=== PATIENT | female | born 1960 | race Caucasian/White ===

== ENCOUNTER 2022-02-27 16:11 | Emergency (ER) | payer OTHER, SELFPAY ==
--- NOTE | ~2022-02-27 | CT_ITS ---
EXAMINATION: CT cervical spine wo con DATE: 02/27/2022 17:23 INDICATION: fall TECHNIQUE: Computed tomography (CT) of the cervical spine was performed without intravenous contrast. Automated exposure control and iterative reconstruction technique were employed. The dose-length pro duct was 213.80 mGy-cm. COMPARISON: None FINDINGS: Counting reference: Craniocervical junction. There are seven cervical type vertebral bodies. Anatomic Variants: None. Vertebral Body Alignment: Intact. Craniocervical junction: Moderate degenerative change. Alignment intact. Osseous structures/fracture: No evidence of a lytic or blastic process in the visualized spine. N o evidence of acute fracture. Cervical soft tissues: The paraspinal soft tissues planes are maintained. Biapical pleural scarrin g and pleural blebs. Degenerative changes: Multilevel degenerative disc disease, severe at C4-5. The level mild facet arth ropathy. Multilevel severe bilateral neural foraminal narrowing and severe central canal narrowing at C4-5. IMPRESSION: No acute fracture or traumatic malalignment in the cervical spine. Reviewed, dictated and finalized at location K.
--- NOTE | ~2022-02-27 | XR_ITS ---
Z EXAM: XR foot LT min 3V DATE: 02/27/2022 16:35 HISTORY: fall - foot swelling, pain thoughout . COMPARISON: None available. FINDINGS: Normal mineralization. No fracture or dislocation. No lytic or blastic lesion. Os navicula ris. Degenerative change in the midfoot joints. Achilles and plantar enthesopathy. No erosion or neisha osteal change. Soft tissues within normal limits. IMPRESSION: No acute osseous finding in the left foot. Reviewed, dictated and finalized at location K.
--- NOTE | ~2022-02-27 | CT_ITS ---
EXAMINATION: CT brain wo con DATE: 02/27/2022 17:23 INDICATION: fall . TECHNIQUE: Computed tomography (CT) of the head was performed without intravenous contrast. The mA wa s adjusted according to patient size. Iterative reconstruction technique was employed. The dose-lengt h product was 605.33 mGy-cm. COMPARISON: 09/13/2007. FINDINGS: No acute intracranial hemorrhage or extra-axial fluid collection. No hydrocephalus, mass, or herniation. No acute ischemic infarct. Unremarkable dural venous sinus attenuation. No acute osseous abnormality. The aerated spaces are clear. Severe chronic white matter change. Moderate atrophy. Multiple old bilateral lacunar infarcts. Old bi lateral occipital and left posterior frontal infarcts. Atherosclerotic intracranial calcifications. IMPRESSION: No acute intracranial process. Reviewed, dictated and finalized at location K.
[2022-02-27 16:27] VITALS: BP 154/86; PULSE 125; RESP 22; TEMP 36.7; O2SAT 98
--- NOTE | 2022-02-27 16:36 | ECG_ITS ---
Measurements Intervals [place] Rate: 112 P: 56 MN: 202 QRS: -9 QRSD: 144 T: 87 QT: 382 QTc: 522 Interpretive Statements SINUS TACHYCARDIA WITH OCCASIONAL VENTRICULAR PREMATURE COMPLEXES WITH OCCASIONAL SUPRAVENTRICULAR PREMATURE COMPLEXES POSSIBLE LEFT ATRIAL ENLARGEMENT [-0.1mV P WAVE IN V1/V2] LEFT BUNDLE BRANCH BLOCK [120+ ms QRS DURATION, 80+ ms Q/S IN V1/V2, 85+ ms R IN I/aVL/V5/V6] NO PREVIOUS ECG AVAILABLE FOR COMPARISON Electronically Signed On 02-27-2022 22:19:25 CDT by Elena Varela M.D.
--- NOTE | 2022-02-27 17:10 | PC.NURSE ---
Pt to CT scan a this time.
--- NOTE | 2022-02-27 17:11 | PC.NURSE ---
Per pt - requesting pain medication. Discussed this and allergies w/ Dr Stinson, gave VORB for Tylenol 650 PO.
[2022-02-27] MEDS: ACETAMINOPHEN 325 MG TABLET 650 MG PO (17:27)
[2022-02-27 17:31] VITALS: BP 138/84; PULSE 85; RESP 19; O2SAT 93
--- NOTE | 2022-02-27 18:04 | ED.FALL ---
HPI - Fall General Chief Complaint: Fall Stated Complaint: fall, left foot pain Time Seen by Provider: 02/27/22 16:31 Source: patient and family Mode of arrival: wheelchair Limitations: no limitations History of Present Illness HPI Narrative: 61-year-old was brought in by family with complaints of fall at home. As per the family nobody has witnessed seen her fall but now complains of, neck and left foot pain. She denies loss of consciousness. MD complaint: fall Onset (ago): hour(s) (2) Fall from: down stairs (#) (4) Fall witnessed: no Place fall occurred: home Loss of consciousness: none Symptoms prior to fall: none Context: tripped/slipped Location of injury: neck, back and other (Left foot) Related Data Allergies Allergy/AdvReac Type Severity Reaction Status Date / Time aspirin Allergy Intermediate Swelling, Verified 02/27/22 16:48 itching, Shortness of breath adhesive tape Allergy Mild ITCHING, Verified 02/27/22 16:48 RED codeine Allergy Unknown Swelling, Verified 02/27/22 16:48 itching, Shortness of breath tramadol Allergy Unknown Itching, Verified 02/27/22 16:48 Swelling, Shortness of breath ANYTHING WITH ZINE Allergy Unknown Rash, Uncoded 02/27/22 16:48 swelling, numbness on face Review of Systems Review of Systems: All systems reviewed & are unremarkable except as noted in HPI and below Constitutional: Constitutional: Reports no additional constitutional complaints Eyes: Eyes: Reports no additional eye complaints ENT: Reports system reviewed and no additional complaints, except as documented Cardiovascular: Cardiovascular: Reports no additional cardiovascular complaints Respiratory: Respiratory: Reports no additional respiratory complaints Gastrointestinal: Gastrointestinal: Reports no additional gastrointestinal complaints Musculoskeletal: Musculoskeletal: Reports as per HPI Neurologic: Reports system reviewed and no additional complaints, except as documented Exam Narrative: GENERAL: Well-appearing, well-nourished, and in no acute distress. HEAD: Normocephalic, atraumatic. EYES: PERRLA and EOMI. NECK: Supple. CHEST: Clear to auscultation. No respiratory distress. HEART: Regular rate and rhythm. No murmur heard. Normal peripheral pulses. ABDOMEN: Soft, nontender, nondistended, normal active bowel sounds. EXTREMITIES: Normal range of motion. No edema. examination of the left foot no deformity or bruising noted. SKIN: Warm, dry, no rash. NEURO: No focal deficits. Alert and oriented x3. PSYCH: Normal mood and affect. Course Course Emergency Course: Pt is wide awake alert in no distress, c-collar in place, as per the who is at bedside has not seen her falling. We will do a CT of the head, C-spine and x-ray of the foot. I have reviewed CT and x-ray findings, EKG findings with the patient and the . Advised her to take Tylenol for pain. Vital Signs Vital signs: Vital Signs Temperature 36.7 C 02/27/22 16:27 Pulse Rate 125 H 02/27/22 16:27 Respiratory Rate 22 H 02/27/22 16:27 Blood Pressure 154/86 H 02/27/22 16:27 Pulse Oximetry 98 02/27/22 16:27 Oxygen Delivery Room Air 02/27/22 16:27 Temperature 36.7 C 02/27/22 16:27 Pulse Rate 85 02/27/22 17:31 Respiratory Rate 19 02/27/22 17:31 Blood Pressure 138/84 02/27/22 17:31 Pulse Oximetry 93 02/27/22 17:31 Oxygen Delivery Room Air 02/27/22 16:27 MDM - Fall Differential Diagnosis Differential diagnosis: Likely syncope and concussion with loss of consciousness Medical Records Attestation: I reviewed the patient's medical records. Imaging Data Radiologist's impression: ITS Impressions Foot X-Ray 02/27/22 16:37 IMPRESSION: No acute osseous finding in the left foot. Head CT 02/27/22 17:27 IMPRESSION: No acute intracranial process. Cervical Spine CT 02/27/22 17:32 IMPRESSION: No acute fra
[2022-02-27 18:24] VITALS: RESP 18; O2SAT 98
== END 2022-02-27 18:20 | disposition home or self-care (01) ==
PROVIDERS: Emergency Provider Family Medicine; PCP Physician Assistant
DX: S16.1XXA Strain of muscle, fascia and tendon at neck level, initial encounter (principal); S90.32XA Contusion of left foot, initial encounter; R00.0 Tachycardia, unspecified; I49.1 Atrial premature depolarization; R94.31 Abnormal electrocardiogram [ECG] [EKG]; I44.7 Left bundle-branch block, unspecified; W10.9XXA Fall (on) (from) unspecified stairs and steps, initial encounter
CPT/HCPCS: 70450; 72125; 73630; 93005; 99284; A9270; L0140

== ENCOUNTER 2022-05-13 15:10 | Emergency (ER) | payer OTHER, SELFPAY ==
[2022-05-13] VITALS (32 sets, daily range): BP systolic 97–131; BP diastolic 44–82; PULSE 69–97; RESP 16–25; TEMP 36.5; O2SAT 81–100
--- NOTE | ~2022-05-13 | XR_ITS ---
EXAMINATION: XR chest 1V portable DATE: 05/13/2022 17:14 INDICATION: Shortness of breath. Cough and hypoxia. TECHNIQUE: frontal view of the chest was obtained. COMPARISON: 10/22/2017 FINDINGS: No focal airspace opacities, pulmonary edema, pleural effusion or pneumothorax. Cardiomediastinal calin houette is within normal limits for AP technique. Mediastinal surgical clips and aortic valve repair. Likely loose osteochondral bodies at the deep subscapular recess of the right glenohumeral joint. IMPRESSION: 1. No acute cardiopulmonary disease. Reviewed, dictated and finalized at location A.
[2022-05-13] MEDS: IPRATROPIUM BR 0.02% INH SOLN 0.5 MG/2.5 ML VIAL 1.5 MG INHALATION (15:57)
[2022-05-13] MEDS: ALBUTEROL SULFATE NEB 2.5 MG/3 ML INH 15 MG INHALATION (15:57)
[2022-05-13 16:04] LABS: Alveolar/Arterial O2 Gradient 20.1 mmHg; Base Excess ABG 4.2 mEq/l (+/-2.0); Fractional Inspired Oxygen 21 %; HCO3 ABG 29.9 mEq/l (22.0-26.0); Oxygen Content ABG 17.1 %vol (16.0-22.0); Oxygen Saturation ABG 94.2 % (95.0-100.0); Oxyhemoglobin 89.9 % THb (90.0-100.0); PO2 FiO2 Ratio Arterial Blood 3.38 %; Total Hemoglobin 13.5 g/dL (12.0-18.0); pH ABG 7.403 (7.350-7.450)
[2022-05-13 16:05] LABS: Device ROOM AIR; Modified Allen's Test Pass; Site Drawn RIGHT RADIAL
[2022-05-13] MEDS: methylPREDNISolone SOD SUCC 125 MG VIAL IV PUSH (16:17)
[2022-05-13 16:27] LABS: Basophils Percent Auto 0.4 % (0.2-1.2); Eosinophils Absolute Auto 0.1 K/mm3 (0-0.3); Eosinophils Percent Auto 1.6 % (0-4.4); Hematocrit 39.5 % (37.0-47.0); Hemoglobin 12.8 g/dL (12.0-15.0); Immature Granulocyte Absolute 0.02 K/mm3 (0.00-0.031); Immature Granulocyte Percent A 0.3 % (0-0.5); Immature Platelet Fraction Pct 9.1 % (0.9-11.2); Lymphocytes Absolute Auto 3.47 K/mm3 (0.9-3.2); Lymphocytes Percent Auto 51.9 % (18.3-44.2); Mean Corpuscular HGB Conc 32.4 g/dl (32-36); Mean Corpuscular Hemoglobin 30.6 pg (26-34); Mean Corpuscular Volume 94.5 fl (80-100); Mean Platelet Volume 11.7 fl (7.4-10.4); Monocytes Absolute Auto 0.3 K/mm3 (0.1-0.6); Monocytes Percent Auto 3.7 % (2.6-8.5); Neutrophils Absolute Auto 2.8 K/mm3 (1.3-6.7); Neutrophils Percent Auto 42.1 % (45.5-73.1); Platelet Count Result 92 k/mm3 (150-375); Red Blood Count 4.18 M/mm3 (4.2-5.4); Red Cell Distribution Width 14.4 % (11.5-14.5); White Blood Count 6.7 K/mm3 (4.5-10.0)
[2022-05-13 16:33] LABS: Alanine Aminotransferase 20 U/L (6-35); Alkaline Phosphatase 63 U/L (38-126); Anion Gap 8 mmol/L (8-16); Aspartate Amino Transferase 27 U/L (14-36); Bilirubin,Total 0.4 mg/dL (0.2-1.3); Blood Urea Nitrogen 20 mg/dL (7-17); Carbon Dioxide 30 mmol/L (22-30); Chloride 100 mmol/L (98-107); Estimated CRCL calculation 39 ml/min; Estimated Glomerular Filt Rate 45; Glucose 363 mg/dL (65-110); Potassium 4.4 mmol/L (3.4-5.0); Sodium 138 mmol/L (137-145)
[2022-05-13 16:42] LABS: NT Pro B Type Natriuretic Pept 304 pg/mL (5-100)
--- NOTE | 2022-05-13 16:51 | ED.SOB ---
HPI - SOB/Dyspnea General Chief Complaint: Shortness of Breath/Dyspnea Stated Complaint: needs chest x-ray Time Seen by Provider: 05/13/22 15:28 History of Present Illness HPI Narrative: Patient is a 61-year-old female who presents ER with shortness of breath and cough. Reports she has been short of breath for couple months with wheezing but is worsening over the last week. Associate with fevers. No chest pain or chest pressure. She has been using nebulizers at home with improvement. Reports she has no known COVID contacts and has not been vaccinated. Patient does have some home oxygen that she uses as needed and her and her noted that she had been hypoxic in the 80s today. Related Data Allergies Allergy/AdvReac Type Severity Reaction Status Date / Time aspirin Allergy Intermediate Swelling, Verified 05/13/22 18:19 itching, Shortness of breath adhesive tape Allergy Mild ITCHING, Verified 05/13/22 18:19 RED codeine Allergy Unknown Swelling, Verified 05/13/22 18:19 itching, Shortness of breath tramadol Allergy Unknown Itching, Verified 05/13/22 18:19 Swelling, Shortness of breath ANYTHING WITH ZINE Allergy Unknown Rash, Uncoded 05/13/22 18:19 swelling, numbness on face Review of Systems Review of Systems: All systems reviewed & are unremarkable except as noted in HPI and below Constitutional: Constitutional: Denies chills, Reports fatigue and Denies fever(s) ENT: Denies nasal congestion and Denies sore throat Cardiovascular: Cardiovascular: Denies chest pain, Denies rapid heart rate and Denies radiating jaw, neck or arm pain Respiratory: Respiratory: Reports chest congestion, Reports cough, Reports dyspnea and Reports wheezing Gastrointestinal: Gastrointestinal: Denies abdominal pain, Denies nausea and Denies vomiting [facility] Past Medical History Medical History (Updated 05/13/22 @ 22:37 by Kieran Gomez MD) Anxiety CHF (congestive heart failure) COPD (chronic obstructive pulmonary disease) CVA (cerebral vascular accident) Mitral valve prolapse Surgical History Surgical History (Updated 05/13/22 @ 22:37 by Kieran Gomez MD) H/O mitral valve replacement H/O: hysterectomy Social History Social History (Updated 05/13/22 @ 22:37 by Kieran Gomez MD) Smoking status: Current every day smoker Exam Narrative: GENERAL: Chronically ill-appearing, well-nourished, and in no acute distress. HEAD: Normocephalic, atraumatic. ENT: Mucous membranes moist. CHEST: Coarse wheezing with expiration bilaterally. No respiratory distress. HEART: Regular rate and rhythm. Normal peripheral pulses. ABDOMEN: Soft, nontender, nondistended. EXTREMITIES: Normal range of motion. No edema. SKIN: Warm, dry, no rash. NEURO: Alert and oriented x3. PSYCH: Normal mood and affect. Course Course Emergency Course: Patient was admitted to the hospital service for hypoxia and COVID-19. Patient decided that she no longer wants to stay in the hospital. She has oxygen at home and a nebulizer machine. She thinks that she will here due to having COVID. I discussed with her she would be more likely to at home due to her COVID, her chronic lung disease, and lack of vaccination. I have tried to encourage her to stay in the hospital but she is absolutely refusing. I will provide her with some Decadron for home despite this poor decision on her part. Vital Signs Vital signs: Vital Signs Temperature 97.7 F 05/13/22 15:16 Pulse Rate 74 05/13/22 15:16 Respiratory Rate 24 H 05/13/22 15:16 Blood Pressure 97/82 L 05/13/22 15:16 Pulse Oximetry 93 05/13/22 15:16 Oxygen Delivery Room Air 05/13/22 15:16 Temperature 97.7 F 05/13/22 15:16 Pulse Rate 89 05/13/22 20:07 Respiratory Rate 19 05/13/22 20:07 Blood Pressure 113/55 L 05/13/22 19:31 Pulse Oximetry 94 05/13/22 19:16 Oxygen Delivery Room Air 05/13/22 15:
--- NOTE | 2022-05-13 18:24 | PC.NURSE ---
Addendum entered by Helena Cohen RN 05/13/22 18:25: 4L Nc Original Note: patient placed on 2L O2 NC
--- NOTE | 2022-05-13 19:22 | PC.NURSE ---
at 1855 - this tech went to complete covid swab order and pt. states , I am diabetic and I feel terrible. You all need to check my sugars. pt. also states she is hungry. Upon checking sugar at 1922 BS was 375. RN notified.
[2022-05-13 19:23] LABS: Glucose Point of Care 375 mg/dl (65-105)
[2022-05-13 19:37] LABS: SARS-CoV-2 RNA PCR Positive
[2022-05-13] MEDS: IPRATROPIUM BR 0.02% INH SOLN 0.5 MG/2.5 ML VIAL INHALATION (19:50)
[2022-05-13] MEDS: ALBUTEROL SULFATE NEB 2.5 MG/3 ML INH 5 MG INHALATION (19:50)
--- NOTE | 2022-05-13 20:58 | PC.NURSE ---
Patient was informed of her positive covid status and states that she didnt have it and there was no way. this RN showed her her test result. patient was upset her family member had to leave and requested to leave with them. this RN spoke with the doctor who spoke with patient and explained the severity of her condition and that is was best for her to stay in the hospital to be admitted. patient states she wants to sign her papers and leave . this RN explained the risks of leaving against medical advice again to the patient and she verbalized understanding. patient signed all forms and ambulated outside to wait for her ride.
== END 2022-05-13 20:58 | disposition left against medical advice (07) ==
PROVIDERS: Emergency Provider Emergency Medicine; PCP Physician Assistant
DX: U07.1 COVID-19 (principal); J45.901 Unspecified asthma with (acute) exacerbation; F41.9 Anxiety disorder, unspecified; I50.9 Heart failure, unspecified; F17.210 Nicotine dependence, cigarettes, uncomplicated
CPT/HCPCS: 36415; 36600; 71045; 80053; 82805; 82948; 83880; 85025; 85055; 94640; 96374; 99284; C9803; J2930; U0003; U0005

== ENCOUNTER 2023-12-27 19:26 | Inpatient (IN) | payer OTHER, SELFPAY ==
[2023-12-27] VITALS (24 sets, daily range): BP systolic 86–119; BP diastolic 56–69; PULSE 69–90; RESP 16–21; TEMP 36.2; O2SAT 94–100; BMI 22.2
--- NOTE | ~2023-12-27 | XR_ITS ---
EXAMINATION: XR chest 1V portable Exam Date/Time: 12/27/2023 20:15 CDT HISTORY: weakness Comparison: 05/13/2022. RESULT: Lines, tubes, and devices: Right hilar surgical clips. Valve replacement. Lungs and pleura: Right hemidiaphragm elevation. Mild senescent/emphysematous change. Cardiomediastinal silhouette: Stable. Other: No acute osseous or upper abdominal finding. Lobular calcification over the right scapula may represent calcified lymph node or other soft tissue/joint calcification IMPRESSION: No acute cardiopulmonary process. Reviewed, dictated and finalized at location K.
--- NOTE | 2023-12-27 19:34 | ECG_ITS ---
Measurements Intervals [place] Rate: 76 P: 21 MS: 241 QRS: -26 QRSD: 166 T: 117 QT: 458 Avg RR: 785 QTc: 488 QTcB: 516 QTcF: 496 Interpretive Statements SINUS RHYTHM WITH FIRST DEGREE AV BLOCK LEFT BUNDLE BRANCH BLOCK [120+ ms QRS DURATION, 80+ ms Q/S IN V1/V2, 85+ ms R IN I/aVL/V5/V6} ABNORMAL ECG SEE SCANNED COPY FOR SIGNATURE MTDD
--- NOTE | 2023-12-27 20:14 | ED.GENADULT ---
HPI - General Adult General Chief complaint: Recheck/Abnormal Lab/Rx Stated complaint: HYPOTENSION Time Seen by Provider: 12/27/23 19:30 History of Present Illness HPI narrative: Patient is a 63-year-old female who presents ER with reports of low blood pressure from [facility]. Apparently patient was discharged from [facility] yesterday and arrived at rehab. Today patient had sudden onset blood pressure in the 70s. She reports she felt like her heart was racing. She received 1500 mL of fluid between the rehab and EMS. EMS reports normal range blood pressures in the 140s. Patient reports profound weakness due to debility from prolonged hospital stay. About 1 month ago patient was evaluated at [facility] for cardiogenic shock. She ended up a [facility] where in attempt to perform a TAVR curd but due to stenosis of the previous valve the could not perform the procedure. Patient was intubated and transferred to [facility] [place]. Patient underwent an additional attempted TAVR which was successful. She has been told she has a very small new valve. EF was approximately 35% after the procedure. She did have septic shock it as well and was on multiple pressors. Prior to discharge she days ago she had her central line cold. No other complaints at this time. Patient is chronically O2 dependent. Related Data Home Medications Medication Instructions Recorded Confirmed acetaminophen 325 mg tablet 650 mg PO Q4H PRN Pain rated 5 or 12/26/23 12/26/23 less alprazolam 0.5 mg tablet 0.5 mg PO TID PRN Anxiety 12/26/23 12/26/23 alprazolam 1 mg tablet 1 mg PO TID 12/26/23 12/26/23 clopidogrel 75 mg tablet 75 mg PO DAILY 12/26/23 12/26/23 ergocalciferol (vitamin D2) 50,000 50,000 unit PO WEEKLY 12/26/23 12/26/23 unit tablet estradiol 0.01% (0.1 mg/gram) 1 g vaginal 3XW 12/26/23 12/26/23 vaginal cream (Estrace) fluticasone furoate 100 1 inh inhalation DAILY 12/26/23 12/26/23 mcg-vilanterol 25 mcg/dose inhalation powder (Breo Ellipta) furosemide 40 mg tablet 40 mg PO BID 12/26/23 12/26/23 hydralazine 25 mg tablet 25 mg PO BID 12/26/23 12/26/23 hydroxyzine HCl 50 mg tablet 50 mg PO QID PRN 12/26/23 12/26/23 insulin glargine 100 unit/mL 7 unit subcut QAM 12/26/23 12/26/23 subcutaneous solution (Lantus U-100 Insulin) insulin lispro 100 unit/mL 3 unit subcut TID 12/26/23 12/26/23 subcutaneous solution ipratropium 0.5 mg-albuterol 3 mg 3 ml inhalation Q4H PRN Shortness 12/26/23 12/26/23 (2.5 mg base)/3 mL nebulization Of Breath Or Wheezing soln lidocaine 5 % topical patch 1 patch topical DAILY 12/26/23 12/26/23 (Lidoderm) loucos-kbcokszm-lwrcsip 2 cap PO TIDWM 12/26/23 12/26/23 24,000-76,000-120,000 unit capsule,delayed rel (Creon) multivitamin,tx-minerals 1 tablet PO DAILY 12/26/23 12/26/23 polyethylene glycol 3350 17 gram 17 g PO DAILY 12/26/23 12/26/23 oral powder packet pregabalin 75 mg capsule 75 mg PO BID 12/26/23 12/26/23 rosuvastatin 10 mg tablet 10 mg PO DAILY 12/26/23 12/26/23 sacubitril 24 mg-valsartan 26 mg 1 tablet PO BID 12/26/23 12/26/23 tablet (Entresto) sennosides 8.6 mg tablet (senna) 8.6 mg PO BID 12/26/23 12/26/23 sennosides 8.6 mg-docusate sodium 1 tab-cap PO BID PRN Constipation 12/26/23 12/26/23 50 mg tablet (Senna with Docusate Sodium) triamcinolone acetonide 0.1 % 1 applic topical BID 12/26/23 12/26/23 topical cream Allergies Allergy/AdvReac Type Severity Reaction Status Date / Time aspirin Allergy Intermediate Swelling, Verified 12/26/23 14:44 itching, Shortness of breath adhesive tape Allergy Mild ITCHING, Verified 12/26/23 14:44 RED codeine Allergy Unknown Swelling, Verified 12/26/23 14:44 itching, Shortness of breath tramadol Allergy Unknown Itching, Verified 12/26/23 14:44 Swelling, Shortness of breath nortriptyline Allergy Wheezing Verified 12/26/23 14:44 ANYTHING WITH ZINE Allergy Unknown R
[2023-12-27 20:18] LABS: Basophils Absolute Auto 0.1 K/mm3 (0.0-0.1); Basophils Percent Auto 1.1 % (0.2-1.2); Eosinophils Absolute Auto 0.3 K/mm3 (0-0.3); Eosinophils Percent Auto 4.2 % (0-4.4); Hematocrit 28.6 % (37.0-47.0); Hemoglobin 8.7 g/dL (12.0-15.0); Immature Granulocyte Absolute 0.01 K/mm3 (0.00-0.031); Immature Granulocyte Percent A 0.1 % (0-0.5); Lymphocytes Absolute Auto 2.78 K/mm3 (0.9-3.2); Lymphocytes Percent Auto 37.9 % (18.3-44.2); Mean Corpuscular HGB Conc 30.4 g/dl (32-36); Mean Corpuscular Hemoglobin 28.8 pg (26-34); Mean Corpuscular Volume 94.7 fl (80-100); Mean Platelet Volume 11.5 fl (7.4-10.4); Monocytes Absolute Auto 0.6 K/mm3 (0.1-0.6); Monocytes Percent Auto 7.5 % (2.6-8.5); Neutrophils Absolute Auto 3.6 K/mm3 (1.3-6.7); Neutrophils Percent Auto 49.2 % (45.5-73.1); Platelet Count Result 145 k/mm3 (150-375); Red Blood Count 3.02 M/mm3 (4.2-5.4); Red Cell Distribution Width 19.2 % (11.5-14.5); White Blood Count 7.3 K/mm3 (4.5-10.0)
[2023-12-27 20:29] LABS: Alanine Aminotransferase 41 U/L (6-35); Albumin Level 3.5 g/dL (3.5-5.1); Alkaline Phosphatase 73 U/L (38-126); Anion Gap 5 mmol/L (4-12); Aspartate Amino Transferase 53 U/L (14-36); Bilirubin,Total 0.3 mg/dL (0.2-1.3); Blood Urea Nitrogen 56 mg/dL (7-17); Calcium 8.1 mg/dL (8.4-10.2); Carbon Dioxide 31 mmol/L (22-30); Chloride 103 mmol/L (98-107); Estimated CRCL calculation 24 ml/min; Estimated Glomerular Filt Rate 28; Glucose 137 mg/dL (65-110); Lactic Acid Reflex 1.2 mmol/L (0.7-2.0); Magnesium 1.7 mg/dL (1.6-2.3); Sodium 139 mmol/L (137-145)
[2023-12-27] MEDS: SODIUM CHLORIDE 0.9% IV 500 ML 999 ML IV CONT (20:40)
[2023-12-27 20:45] LABS: Prothrombin Time 13.2 Seconds (11.1-14.7)
[2023-12-27 20:46] LABS: Partial Thromboplastin Time 33.2 Seconds (22.3-36.8)
[2023-12-27 20:56] LABS: Troponin I 0.053 ng/mL (0.000-0.034)
--- NOTE | 2023-12-27 21:32 | PM.IMHP ---
H&P: HPI History of Present Illness Date/Time: 12/27/23 21:32 Chief Complaint: hypotension Narrative: This is a 63-year-old female with past medical history significant for systolic and diastolic heart failure, chronic kidney disease, COPD, a stroke, mitral valve prolapse, aortic stenosis status post TAVR. Patient with recent prolonged an eventful hospitalization patient recently discharged to rehabilitation center she had an episode of hypotension today were her systolic was 70 received 1 L of fluids and was sent to the emergency room for further evaluation. Patient states that she does not feel well she feels very tired, denies any nausea, vomiting, chills, cough has had shortness of breath and intermittent chest pain, denies any loss of consciousness, has some bilateral pedal and leg swelling. Preliminary workup was significant for chemistry panel shows a BUN 56 creatinine 1.8 troponin x1 0.053 hemoglobin 8.7 hematocrit 28 platelet count [id number] a chest x-ray was clear. EXAMINATION:? XR chest 1V portable Exam Date/Time:? 12/27/2023 20:15 CDT HISTORY: weakness ? Comparison:? 05/13/2022. RESULT: Lines, tubes, and devices:? Right hilar surgical clips. Valve replacement. Lungs and pleura:? Right hemidiaphragm elevation. Mild senescent/emphysematous change. Cardiomediastinal silhouette:? Stable. Other:? No acute osseous or upper abdominal finding. Lobular calcification over the right scapula may represent calcified lymph node or other soft tissue/joint calcification ? IMPRESSION: No acute cardiopulmonary process. Review of Systems Review of Systems: Hypotension, not feeling well feeling very tired and fatigued Constitutional: Constitutional: Denies chills, Reports fatigue, Denies fever(s), Denies malaise, Denies night sweats and Reports weakness Eyes: Eyes: Denies change in vision ENT: Denies dysphagia, Denies vertigo, Denies dizziness, Denies nasal congestion, Denies nasal discharge and Denies odynophagia Cardiovascular: Cardiovascular: Reports pedal edema, Reports leg edema, Denies radiating jaw, neck or arm pain, Denies palpitations and Reports dyspnea Respiratory: Respiratory: Denies chest congestion and Denies cough Gastrointestinal: Gastrointestinal: Denies abdominal pain, Denies dyspepsia, Denies heartburn, Denies nausea and Denies vomiting Genitourinary: Genitourinary: Denies dysuria Musculoskeletal: Musculoskeletal: Denies myalgias Integumentary/Breasts: Skin/Breast: Denies rash Neurologic: Denies focal weakness and Denies Sensory deficit (Neuro) Psychiatric: Psychiatric: Reports no additional psychiatric complaints and Reports as per HPI Endocrine: Endocrine: Denies cold intolerance, Denies fatigue, Denies flushing, Denies heat intolerance, Denies polyphagia, Denies polydipsia, Denies polyuria and Denies palpitations Hematologic/Lymphatic: Hematologic/Lymphatic: Reports no additional hematologic/lymphatic complaints and Reports as per HPI Allergic/Immunologic: Allergic/Immunologic: Reports no additional allergic/immunologic complaints and Reports as per HPI PMFSH Past Medical History Medical History (Updated 12/27/23 @ 21:50 by Demetris Ron MD) LEXI (acute kidney injury) Anxiety sees psychiatry Aortic valve stenosis replaced with bioprosthetic aortic valve in 2007 Cardiogenic shock CHF (congestive heart failure) Chronic pancreatitis Combined systolic and diastolic congestive heart failure Congestive heart failure due to valvular disease COPD (chronic obstructive pulmonary disease) CVA (cerebral vascular accident) left hemiparesis per patient; LUE Impingement of left shoulder history LUE paresis due to stroke, left shoulder ROM now impaired Mitral valve prolapse Nocturnal hypoxia VRE (vancomycin resistant enterococcus) culture positive Surgical History Surgical History H/O mitral valve replacement H/O: hyster
--- NOTE | 2023-12-27 23:07 | ADMGEN ---
This patient, Rachel Decker, was admitted to IMU Room 211-01. Patient/family oriented to hospital policies and general routines including ID bracelet, bed and alarms, visiting hours, pain management, procedures, bathroom and other care routines, personal items, smoking policy, room service/diet, and visiting hours. Information on how to activate the Rapid Response Team has been discussed. Patient/Family are encouraged to report perceived risks to care and to ask questions if they do not understand what they are told or what they should do.
[2023-12-28] VITALS (19 sets, daily range): BP systolic 88–109; BP diastolic 51–59; PULSE 63–101; RESP 16–20; TEMP 36.4–36.8; O2SAT 94–100
[2023-12-28] MEDS: ALPRAZolam (*CRX) 0.5 MG TABLET PO ×2 (01:23→20:52)
[2023-12-28 02:44] LABS: Troponin I 0.071 ng/mL (0.000-0.034)
[2023-12-28 04:47] LABS: Troponin I 0.094 ng/mL (0.000-0.034)
[2023-12-28] MEDS: FLUTICASONE/SALMETEROL 115-21 MCG INHALER 1 PUFF 2 PUFF INHALATION ×2 (07:47→20:12)
[2023-12-28] MEDS: IPRATROPIUM 0.5 MG/ALBUTEROL SULFATE 2.5 MG AMPUL.NEB 3 ML INHALATION (07:48)
[2023-12-28 08:34] LABS: Glucose Point of Care 219 mg/dl (65-105)
[2023-12-28] MEDS: LIPASE/AMYLASE/PROTEASE 12,000 UNITS CAP 4 CAP PO ×3 (08:53→16:51)
[2023-12-28] MEDS: CLOPIDOGREL BISULFATE 75 MG TABLET PO (08:54)
[2023-12-28] MEDS: PREGABALIN (*CRX) 75 MG CAPSULE PO ×2 (08:54→16:52)
[2023-12-28] MEDS: LIDOCAINE 5% PATCH 1 PATCH TOPICAL (08:54)
[2023-12-28] MEDS: INSULIN ASPART (*BKC) 100 UNITS/ML SUB-Q ×5 (09:08→16:54)
[2023-12-28] MEDS: INSULIN GLARGINE (*BKC) 100 UNITS/ML 7 UNITS SUB-Q (09:09)
[2023-12-28] MEDS: LACTATED RINGERS 1,000 ML 60 ML IV CONT (09:16)
--- NOTE | 2023-12-28 09:32 | PM.IMPN ---
Progress Note: A&P Assessment and Plan (1) Transient neurologic deficit: Code(s): R29.818 - Other symptoms and signs involving the nervous system Status: Acute Assessment and Plan: Suspect TIA (2) LEXI (acute kidney injury): Code(s): N17.9 - Acute kidney failure, unspecified Status: Acute Assessment and Plan: Worse since TAVR (3) Hypotension: Code(s): I95.9 - Hypotension, unspecified Status: Acute Assessment and Plan: Relative intravascular volume deficit likely due in part to low cardiac output (4) Combined systolic and diastolic congestive heart failure: Code(s): I50.40 - Unspecified combined systolic (congestive) and diastolic (congestive) heart failure Status: Acute Assessment and Plan: Clinically with intravascular volume deficit (5) COPD (chronic obstructive pulmonary disease): Code(s): J44.9 - Chronic obstructive pulmonary disease, unspecified Status: Acute Assessment and Plan: Currently stable on 3 L oxygen (6) Type 2 diabetes mellitus with hyperglycemia: Code(s): E11.65 - Type 2 diabetes mellitus with hyperglycemia Status: Acute Assessment and Plan: FBS 219 Continue glycemic management (7) S/P TAVR (transcatheter aortic valve replacement): Code(s): Z95.2 - Presence of prosthetic heart valve Status: Acute Assessment and Plan: Contacted [facility] transfer center 12/27 for possible transfer Discussed with son that discussion of advanced directives would be appropriate Subjective Date/time seen: 12/28/23 09:32 Interval history: Recent TAVR at [facility]. Required 2 U blood. Had severe heart failure with low BP and LEXI. Was sent to [facility] 12/25. Sent here 4/6 PM due to low BP (similar to what she had at [place]). This AM had about 20 min of left leg numbness w/o weakness that has completely resolved. Ate most of her breakfast. Denied chest pain or sob. No observed blood loss. No other focal symptoms. Review of Systems Review of Systems: All systems reviewed & are unremarkable except as noted in HPI and below Exam Narrative: HEENT: PERRL, sclerae nonicteric, pharyngeal mucosa pink and intact NECK: No JVD CHEST: Clear to auscultation. Normal effort. HEART: NL S1/S2, regular, 3/6 MARCIN RUSB ABDOMEN: BS+, soft, nontender, no mass, no bruits EXTREMITIES: No cyanosis, edema, or clubbing NEUROLOGIC: CN intact and symmetric to inspection. MUSCULOSKELETAL: Tone and strength symmetric. DTR's symmetric at biceps, triceps, knees, absent at ankles. Babinski's negative bilaterally. Sensation to light touch symmetric in distal LE's. Left still operator helper 4/5, right 5/5. Left and right dorsiflexion and plantar flexion intact. PSYCH: Alert. Oriented to person, place, and time. Objective Data Vital Signs Vital Signs: Vital Signs - 24 hr 12/27/23 19:25 12/27/23 20:14 12/27/23 20:15 Temperature 97.2 F L Pulse Rate 79 79 76 Respiratory Rate 21 H 18 18 Blood Pressure 96/57 L 89/56 L Pulse Oximetry 100 100 100 Oxygen Delivery Nasal Cannula Oxygen Flow Rate 3 Fraction of Inspired Oxygen 12/27/23 20:16 12/27/23 20:30 12/27/23 20:31 Temperature Pulse Rate 76 74 73 Respiratory Rate 16 18 21 H Blood Pressure 86/58 L 91/56 L Pulse Oximetry 100 100 100 Oxygen Delivery Oxygen Flow Rate Fraction of Inspired Oxygen 12/27/23 20:45 12/27/23 20:46 12/27/23 21:00 Temperature Pulse Rate 69 73 73 Respiratory Rate 19 16 18 Blood Pressure 86/59 L Pulse Oximetry 99 100 100 Oxygen Delivery Oxygen Flow Rate Fraction of Inspired Oxygen 12/27/23 21:01 12/27/23 21:15 12/27/23 21:16 Temperature Pulse Rate 73 75 76 Respiratory Rate 18 17 21 H Blood Pressure 94/59 L 95/60 L Pulse Oximetry 100 100 100 Oxygen Delivery Oxygen Flow Rate Fraction of Inspired Oxygen 12/27/23 21:17 12/27/23 21:30 12/27/23 21:31 Temperature Pulse Rate 76 78 78 Respirat
[2023-12-28 09:42] LABS: Hematocrit 29.7 % (37.0-47.0); Hemoglobin 8.7 g/dL (12.0-15.0); Mean Corpuscular HGB Conc 29.3 g/dl (32-36); Mean Corpuscular Hemoglobin 28.3 pg (26-34); Mean Corpuscular Volume 96.7 fl (80-100); Mean Platelet Volume 12.2 fl (7.4-10.4); Platelet Count Result 130 k/mm3 (150-375); Red Blood Count 3.07 M/mm3 (4.2-5.4); Red Cell Distribution Width 19.1 % (11.5-14.5); White Blood Count 6.5 K/mm3 (4.5-10.0)
[2023-12-28 09:44] LABS: Immature Reticulocyte Fraction 6.8 % (3.0-15.9); Reticulocyte Hemoglobin Conten 31.3 pg (28.2-36.6); Reticulocyte Percent 0.77 % (0.7-4.3); Reticulocytes Absolute 0.02 10^6/uL (0.02-0.10)
[2023-12-28 09:56] LABS: Albumin Level 3.5 g/dL (3.5-5.1); Anion Gap 5 mmol/L (4-12); Bilirubin,Total 0.4 mg/dL (0.2-1.3); Carbon Dioxide 31 mmol/L (22-30); Chloride 105 mmol/L (98-107); Estimated CRCL calculation 32 ml/min; Estimated Glomerular Filt Rate 38; Potassium 4.1 mmol/L (3.4-5.0); Sodium 141 mmol/L (137-145)
[2023-12-28 10:03] LABS: Alanine Aminotransferase 41 U/L (6-35); Alkaline Phosphatase 71 U/L (38-126); Aspartate Amino Transferase 55 U/L (14-36); Blood Urea Nitrogen 45 mg/dL (7-17); Calcium 8.8 mg/dL (8.4-10.2); Glucose 327 mg/dL (65-110)
[2023-12-28 10:13] LABS: Iron 61 ug/dL (37-170)
[2023-12-28 10:23] LABS: Percent Iron Saturation 20 % (20-50)
[2023-12-28 10:28] LABS: HAV RESULT Negative (Negative)
[2023-12-28 10:45] LABS: Hepatitis B Surface Antigen Negative (Negative)
[2023-12-28 10:57] LABS: Folic Acid 16.1 ng/mL (2.76->20)
[2023-12-28 11:03] LABS: Hepatitis C Virus Antibody Negative (Negative)
[2023-12-28 12:54] LABS: Glucose Point of Care 265 mg/dl (65-105)
--- NOTE | 2023-12-28 13:27 | PCCCNOTE ---
On 12/28/23, the student, [Jaclyn Sharma ], provided care and completed [facility] documentation on this patient. I have reviewed the student's documentation and agree with the findings.
--- NOTE | 2023-12-28 14:37 | PC.NURSE ---
Called the transfer center et spoke with Chel [phone]. No bed at this time. Report given on the pts current Vital signs at this time.
--- NOTE | 2023-12-28 14:49 | PM.TDS ---
Transfer Discharge Sum: Prov Provider Date of admission: 12/27/23 21:38 Primary care physician: Olga Arredondo, Admitting clinician: Demetris Ron MD DS: Admitting Diagnosis Discharge Date 12/28/2023 Admitting Diagnosis Hypotension DS: Discharge Diagnosis Discharge Diagnosis (1) Transient neurologic deficit: Code(s): R29.818 - Other symptoms and signs involving the nervous system Status: Acute Assessment and Plan: Suspect TIA (2) LEXI (acute kidney injury): Code(s): N17.9 - Acute kidney failure, unspecified Status: Acute Assessment and Plan: Worse since TAVR (3) Hypotension: Code(s): I95.9 - Hypotension, unspecified Status: Acute Assessment and Plan: Relative intravascular volume deficit likely due in part to low cardiac output (4) Combined systolic and diastolic congestive heart failure: Code(s): I50.40 - Unspecified combined systolic (congestive) and diastolic (congestive) heart failure Status: Acute Assessment and Plan: Clinically with intravascular volume deficit (5) COPD (chronic obstructive pulmonary disease): Code(s): J44.9 - Chronic obstructive pulmonary disease, unspecified Status: Acute Assessment and Plan: Currently stable on 3 L oxygen (6) Type 2 diabetes mellitus with hyperglycemia: Code(s): E11.65 - Type 2 diabetes mellitus with hyperglycemia Status: Acute Assessment and Plan: FBS 219 Continue glycemic management (7) S/P TAVR (transcatheter aortic valve replacement): Code(s): Z95.2 - Presence of prosthetic heart valve Status: Acute Assessment and Plan: Contacted [facility] transfer center 12/27 for possible transfer Discussed with son that discussion of advanced directives would be appropriate Transfer Discharge Sum: Med Medications Active and Home Medications: Home Medications acetaminophen 325 mg tablet 650 mg PO Q4H PRN Pain rated 5 or less 12/26/23 [History Confirmed 12/27/23] alprazolam 0.5 mg tablet 0.5 mg PO BID PRN Anxiety 12/26/23 [History Confirmed 12/27/23] alprazolam 1 mg tablet 0.5 mg PO HS 12/26/23 [History Confirmed 12/27/23] clopidogrel 75 mg tablet 75 mg PO DAILY 12/26/23 [History Confirmed 12/27/23] ergocalciferol (vitamin D2) 50,000 unit tablet 50,000 unit PO WEEKLY 12/26/23 [History Confirmed 12/28/23] estradiol 0.01% (0.1 mg/gram) vaginal cream (Estrace) 1 g vaginal 3XW 12/26/23 [History Confirmed 12/28/23] fluticasone furoate 100 mcg-vilanterol 25 mcg/dose inhalation powder (Breo Ellipta) 1 inh inhalation DAILY 12/26/23 [History Confirmed 12/28/23] furosemide 40 mg tablet 40 mg PO BID 12/26/23 [History Confirmed 12/27/23] hydralazine 25 mg tablet 25 mg PO BID 12/26/23 [History Confirmed 12/27/23] hydroxyzine HCl 50 mg tablet 50 mg PO QID PRN Anxiety 12/26/23 [History Confirmed 12/27/23] insulin glargine 100 unit/mL subcutaneous solution (Lantus U-100 Insulin) 7 unit subcut QAM 12/26/23 [History Confirmed 12/27/23] insulin lispro 100 unit/mL subcutaneous solution 3 unit subcut TIDWMEAL 12/26/23 [History Confirmed 12/27/23] ipratropium 0.5 mg-albuterol 3 mg (2.5 mg base)/3 mL nebulization soln 3 ml inhalation Q4H PRN Shortness Of Breath Or Wheezing 12/26/23 [History Confirmed 12/27/23] lidocaine 5 % topical patch (Lidoderm) 1 patch topical DAILY 12/26/23 [History Confirmed 12/28/23] nwyclv-fypgverv-uibvgnd 24,000-76,000-120,000 unit capsule,delayed rel (Creon) 2 cap PO TIDWM 12/26/23 [History Confirmed 12/28/23] multivitamin,tx-minerals 1 tablet PO DAILY 12/26/23 [History Confirmed 12/28/23] polyethylene glycol 3350 17 gram oral powder packet 17 g PO DAILY 12/26/23 [History Confirmed 12/28/23] pregabalin 75 mg capsule 75 mg PO BID 12/26/23 [History Confirmed 12/28/23] sacubitril 24 mg-valsartan 26 mg tablet (Entresto) 1 tablet PO BID 12/26/23 [History Confirmed 12/28/23] sennosides 8.6 mg tablet (senna) 8.6 mg PO BID 12/26/23 [History Confirmed 04
[2023-12-28 16:27] LABS: Glucose Point of Care 146 mg/dl (65-105)
[2023-12-28 17:25] LABS: Free T4 Free Thyroxine Reflex 1.67 ng/dL (0.78-2.19)
--- NOTE | 2023-12-28 17:34 | PC.NURSE ---
Reported the pts B/P 88/51 (63) The pt is denying distress at this time. LR currently infusing. No new interventions at this time. Update given on [facility] admit status with no new interventions at this time.
[2023-12-28 19:14] LABS: Total Triiodothyronine (T3) 1.09 NG/ML (0.97-1.69)
--- NOTE | 2023-12-28 20:02 | PC.NURSE ---
Unable to collect stool specimen, no BM today
[2023-12-28 20:24] LABS: Glucose Point of Care 232 mg/dl (65-105)
[2023-12-29] VITALS (25 sets, daily range): BP systolic 85–114; BP diastolic 42–65; PULSE 67–84; RESP 16–20; TEMP 35.8–37.1; O2SAT 94–100; BMI 23.8
[2023-12-29] MEDS: LACTATED RINGERS 1,000 ML 60 ML IV CONT (02:27)
[2023-12-29 04:49] LABS: Hematocrit 25.1 % (37.0-47.0); Hemoglobin 7.5 g/dL (12.0-15.0); Immature Platelet Fraction Pct 7.1 % (0.9-11.2); Mean Corpuscular HGB Conc 29.9 g/dl (32-36); Mean Corpuscular Hemoglobin 28.7 pg (26-34); Mean Corpuscular Volume 96.2 fl (80-100); Platelet Count Result 110 k/mm3 (150-375); Red Blood Count 2.61 M/mm3 (4.2-5.4); Red Cell Distribution Width 19.3 % (11.5-14.5); White Blood Count 5.6 K/mm3 (4.5-10.0)
[2023-12-29 05:01] LABS: Alanine Aminotransferase 33 U/L (6-35); Albumin Level 3.1 g/dL (3.5-5.1); Alkaline Phosphatase 59 U/L (38-126); Anion Gap 3 mmol/L (4-12); Aspartate Amino Transferase 39 U/L (14-36); Bilirubin,Total 0.2 mg/dL (0.2-1.3); Blood Urea Nitrogen 39 mg/dL (7-17); Calcium 8.3 mg/dL (8.4-10.2); Carbon Dioxide 30 mmol/L (22-30); Chloride 107 mmol/L (98-107); Estimated CRCL calculation 35 ml/min; Estimated Glomerular Filt Rate 41; Glucose 198 mg/dL (65-110); Potassium 3.6 mmol/L (3.4-5.0); Sodium 140 mmol/L (137-145)
[2023-12-29] MEDS: FLUTICASONE/SALMETEROL 115-21 MCG INHALER 1 PUFF 2 PUFF INHALATION ×2 (08:50→21:25)
[2023-12-29] MEDS: LIDOCAINE 5% PATCH 1 PATCH TOPICAL (09:36)
[2023-12-29] MEDS: PREGABALIN (*CRX) 75 MG CAPSULE PO ×2 (09:37→17:03)
[2023-12-29] MEDS: CLOPIDOGREL BISULFATE 75 MG TABLET PO (09:37)
[2023-12-29] MEDS: LIPASE/AMYLASE/PROTEASE 12,000 UNITS CAP 4 CAP PO ×3 (09:37→17:02)
[2023-12-29] MEDS: ACETAMINOPHEN 325 MG TABLET 650 MG PO ×2 (09:38→17:03)
[2023-12-29 09:42] LABS: Glucose Point of Care 258 mg/dl (65-105)
[2023-12-29] MEDS: INSULIN ASPART (*BKC) 100 UNITS/ML SUB-Q ×5 (10:02→17:07)
[2023-12-29] MEDS: INSULIN GLARGINE (*BKC) 100 UNITS/ML 7 UNITS SUB-Q (10:03)
[2023-12-29 15:08] LABS: Glucose Point of Care 236 mg/dl (65-105)
[2023-12-29 16:41] LABS: Glucose Point of Care 171 mg/dl (65-105)
--- NOTE | 2023-12-29 17:37 | PM.IMPN ---
Progress Note: A&P Assessment and Plan (1) Transient neurologic deficit: Code(s): R29.818 - Other symptoms and signs involving the nervous system Status: Acute (2) CVA (cerebral vascular accident): Code(s): I63.9 - Cerebral infarction, unspecified Status: Acute (3) LEXI (acute kidney injury): Code(s): N17.9 - Acute kidney failure, unspecified Status: Acute (4) Hypotension: Code(s): I95.9 - Hypotension, unspecified Status: Acute (5) Cardiogenic shock: Code(s): R57.0 - Cardiogenic shock Status: Acute (6) Impingement of left shoulder: Code(s): M25.812 - Other specified joint disorders, left shoulder Status: Acute (7) Combined systolic and diastolic congestive heart failure: Code(s): I50.40 - Unspecified combined systolic (congestive) and diastolic (congestive) heart failure Status: Acute (8) Anemia: Code(s): D64.9 - Anemia, unspecified Status: Acute Plan # Anemia - hemoglobin continues to drop down to 7.5, no obvious bleeding identified - anemia workup ordered - patient is seen had a TAVR done, case of post-TAVR anemia?. workup for hemolysis ordered - hypoxia from anemia?, on 2L O2 by [place] - during TAVR patient had 2 units packed red blood cell transfusion, subsequently sent to [facility] for rehab on 12/25 # hypotension -Continue monitor blood pressure, will hold IV fluids and see if blood pressure maintains - patient appears to have low cardiac output # debility - patient work with PT OT, [facility] # chronic conditions - CKD stage IIIB: Creatinine stable at 1.3, GFR 41 - peripheral neuropathy: Lyrica - constipation: MiraLax, docusate/senna - chronic pancreatic insufficiency deficiency: On lipase, amylase, protease supplement - insulin dependent diabetes: On glargine 7 units a.m., aspart 3 units t.i.d. a.c., sliding scale insulin, hypoglycemia protocol, Accu-Cheks a.c. HS - anxiety: Xanax - aortic stenosis: On Plavix - COPD, wean O2 as tolerated Diet: heart healthy DVT prophylaxis: SCDs, holding chemoprophylaxis with anemia Code status: full code Disposition: back to rehab in greater than 3 days Subjective Date/time seen: 12/29/23 17:37 Interval history: Patient seen and examined. Blood pressure continues to be low, hemoglobin dropped to 7.5. Orthostatics negative. Will place [place] catheter for incontinence and for strict I&O. will have PT and OT evaluate patient. Unclear why patient's anemia is worsening, ordering anemia workup. she has been weaned down to 2 L O2 by NC and breathing comfortably. Patient had recent TAVR requiring blood transfusions, will need to monitor closely anemia. Review of Systems Review of Systems: 10 point ROS complete, negative other than what is specified in HPI. Exam Narrative: - GENERAL: Pleasant woman no acute distress. - EYES: EOMI. Anicteric. - HENT: Moist mucous membranes. - LUNGS: Clear to auscultation bilaterally, no wheezing, rhonchi, or rales. - CARDIOVASCULAR: Regular rate and rhythm. No murmur. No JVD. - ABDOMEN: Soft, non-tender and non-distended. No palpable masses. - EXTREMITIES: No edema. Peripheral pulses 2+. Non-tender. - NEUROLOGIC: No focal neurological deficits. CN II-XII grossly intact. - PSYCHIATRIC: Awake, Alert and oriented x 3. Appropriate mood and affect. - SKIN: No rashes or lesions. Warm. - LYMPH: No cervical lymphadenopathy. Objective Data Vital Signs Vital Signs: Vital Signs - 24 hr 12/28/23 18:00 12/28/23 20:12 12/28/23 20:13 Temperature Pulse Rate 76 72 72 Respiratory Rate 18 Blood Pressure Pulse Oximetry 96 Oxygen Delivery Oxygen Flow Rate 3 Fraction of Inspired Oxygen 32 12/28/23 20:25 12/28/23 20:00 12/28/23 20:00 Temperature 36.5 C Pulse Rate 81 80 Respiratory Rate 20 Blood Pressure 109/59 L Pulse Oximetry 100 96 Oxygen Delivery Nasal Cannul
[2023-12-29 19:51] LABS: Immature Reticulocyte Fraction 10.3 % (3.0-15.9); Reticulocyte Hemoglobin Conten 31.4 pg (28.2-36.6); Reticulocyte Percent 0.71 % (0.7-4.3); Reticulocytes Absolute 0.02 10^6/uL (0.02-0.10)
[2023-12-29 20:01] LABS: Bilirubin,Total 0.3 mg/dL (0.2-1.3); Lactate Dehydrogenase 226 U/L (120-246)
[2023-12-29 20:31] LABS: Iron 43 ug/dL (37-170)
[2023-12-29 20:40] LABS: Transferrin 204 mg/dL (206-381)
[2023-12-29 20:42] LABS: Percent Iron Saturation 15 % (20-50)
[2023-12-29] MEDS: ALPRAZolam (*CRX) 0.5 MG TABLET PO (20:46)
[2023-12-29 20:56] LABS: Glucose Point of Care 211 mg/dl (65-105)
[2023-12-29 23:07] LABS: Total Triiodothyronine (T3) 0.89 NG/ML (0.97-1.69)
[2023-12-30] VITALS (21 sets, daily range): BP systolic 98–119; BP diastolic 53–72; PULSE 65–91; RESP 15–20; TEMP 36.2–36.6; O2SAT 93–100
[2023-12-30 04:44] LABS: Basophils Percent Auto 0.8 % (0.2-1.2); Eosinophils Absolute Auto 0.2 K/mm3 (0-0.3); Eosinophils Percent Auto 4.7 % (0-4.4); Hematocrit 23.7 % (37.0-47.0); Immature Granulocyte Absolute 0.01 K/mm3 (0.00-0.031); Immature Granulocyte Percent A 0.2 % (0-0.5); Lymphocytes Absolute Auto 2.37 K/mm3 (0.9-3.2); Lymphocytes Percent Auto 45.9 % (18.3-44.2); Mean Corpuscular Volume 96.7 fl (80-100); Mean Platelet Volume 11.9 fl (7.4-10.4); Monocytes Absolute Auto 0.4 K/mm3 (0.1-0.6); Neutrophils Absolute Auto 2.1 K/mm3 (1.3-6.7); Neutrophils Percent Auto 41.4 % (45.5-73.1); Platelet Count Result 103 k/mm3 (150-375); Red Blood Count 2.45 M/mm3 (4.2-5.4); Red Cell Distribution Width 19.3 % (11.5-14.5); White Blood Count 5.2 K/mm3 (4.5-10.0)
[2023-12-30 04:58] LABS: Anion Gap 4 mmol/L (4-12); Blood Urea Nitrogen 33 mg/dL (7-17); Calcium 8.5 mg/dL (8.4-10.2); Carbon Dioxide 28 mmol/L (22-30); Chloride 111 mmol/L (98-107); Estimated CRCL calculation 41 ml/min; Estimated Glomerular Filt Rate 50; Glucose 144 mg/dL (65-110); Potassium 3.8 mmol/L (3.4-5.0); Sodium 143 mmol/L (137-145)
[2023-12-30 05:20] LABS: Hemoglobin 7.1 g/dL (12.0-15.0); Platelet Estimate Decreased (Adequate)
[2023-12-30 05:21] LABS: Anisocytosis 1+; Hypochromasia 1+; Large Platelets Present; Ovalocytes 1+
[2023-12-30 05:22] LABS: Schistocytes Rare; Stomatocytes 1+
[2023-12-30] MEDS: FLUTICASONE/SALMETEROL 115-21 MCG INHALER 1 PUFF 2 PUFF INHALATION ×2 (08:02→19:59)
[2023-12-30 08:09] LABS: Glucose Point of Care 124 mg/dl (65-105)
[2023-12-30] MEDS: CLOPIDOGREL BISULFATE 75 MG TABLET PO (08:33)
[2023-12-30] MEDS: INSULIN GLARGINE (*BKC) 100 UNITS/ML 7 UNITS SUB-Q (08:33)
[2023-12-30] MEDS: INSULIN ASPART (*BKC) 100 UNITS/ML SUB-Q ×4 (08:33→16:42)
[2023-12-30] MEDS: polyethylene glycoL 3350 17 GM POWD.PACK PO (08:33)
[2023-12-30] MEDS: PREGABALIN (*CRX) 75 MG CAPSULE PO ×2 (08:33→16:41)
[2023-12-30] MEDS: LIPASE/AMYLASE/PROTEASE 12,000 UNITS CAP 4 CAP PO ×3 (08:33→16:41)
[2023-12-30] MEDS: LIDOCAINE 5% PATCH 1 PATCH TOPICAL (08:34)
[2023-12-30 11:53] LABS: Glucose Point of Care 203 mg/dl (65-105)
--- NOTE | 2023-12-30 11:59 | PC.NURSE ---
RN received clarification on treating pt's H&H of 7.1. New order to transfuse 1u PRBC. Recheck H&H 2 hours after transfusion
--- NOTE | 2023-12-30 13:58 | PM.IMPN ---
Progress Note: A&P Assessment and Plan (1) Anemia: Code(s): D64.9 - Anemia, unspecified Status: Acute (2) CVA (cerebral vascular accident): Code(s): I63.9 - Cerebral infarction, unspecified Status: Acute (3) LEXI (acute kidney injury): Code(s): N17.9 - Acute kidney failure, unspecified Status: Acute (4) Hypotension: Code(s): I95.9 - Hypotension, unspecified Status: Acute (5) Cardiogenic shock: Code(s): R57.0 - Cardiogenic shock Status: Acute Plan #? Anemia - hemoglobin continues to drop down to 7.1 from presentation 8.7, no obvious bleeding identified -giving 1u PRBC for hgb 7.1 - anemia workup ordered including hemolysis work -no melena identified, no source of bleeding seen. patient is only on plavix - during recent TAVR procedure patient had 2 units packed red blood cell transfusion,? subsequently sent to [facility] for rehab on 12/25 - patient is having ongoing anemia after TAVR, will evaluate for hemolysis # hypotension, resolved -Continue monitor blood pressure, will hold IV fluids and see if blood pressure maintains - patient appears to have low cardiac output - with supportive care blood pressure has improved 113/72 this AM # debility - patient work with PT OT, [facility] # chronic conditions - CKD stage IIIB: Creatinine stable at 1.3,? GFR 41 - peripheral neuropathy: Lyrica - constipation: MiraLax, docusate/senna - chronic? pancreatic insufficiency deficiency: On lipase, amylase, protease supplement -? insulin dependent diabetes:? On glargine 7 units a.m., aspart 3 units t.i.d. a.c., sliding scale insulin, hypoglycemia protocol, Accu-Cheks a.c. HS -? anxiety: Xanax - aortic stenosis: On Plavix - COPD, wean O2 as tolerated Diet:?heart healthy DVT prophylaxis:? SCDs, holding chemoprophylaxis with anemia Code status:?full code Disposition:?awaiting transfer to [facility] Subjective Date/time seen: 12/30/23 13:58 Interval history: Patient seen and examined. She is doing well no new complaints. Hemoglobin continues to downtrend 7.1. Will give 1 unit packed red blood cells transfusion. She still in transfer list for [facility], patient has unexplained complications from her TAVR with anemia. hemolysis workup pending, we will continue with supportive care. family updated bedside. patient has fever, chills, nausea vomiting, diarrhea, lightheadedness, dizziness, chest pain, shortness of breath Review of Systems Review of Systems: 10 point ROS complete, negative other than what is specified in HPI. Exam Narrative: - GENERAL:? ? Pleasant frail woman no acute distress. - EYES: EOMI. Anicteric. - HENT: Moist mucous membranes. - LUNGS: Clear to auscultation bilaterally, no wheezing, rhonchi, or rales. - CARDIOVASCULAR: Regular rate and rhythm. No murmur. No JVD. - ABDOMEN: Soft, non-tender and non-distended. No palpable masses. - EXTREMITIES: No edema. Peripheral pulses 2+. Non-tender. - NEUROLOGIC: No focal neurological deficits. CN II-XII grossly intact. - PSYCHIATRIC: Awake, Alert and oriented x 3. Appropriate mood and affect. - SKIN: No rashes or lesions. Warm. - LYMPH: No cervical lymphadenopathy.? Objective Data Vital Signs Vital Signs: Vital Signs - 24 hr 12/29/23 15:05 12/29/23 16:19 12/29/23 14:00 Temperature 36.7 C 36.9 C Pulse Rate 74 69 73 Respiratory Rate 16 16 Blood Pressure 94/50 L 108/59 L Pulse Oximetry 100 100 Oxygen Delivery Oxygen Flow Rate 12/29/23 16:00 12/29/23 18:00 12/29/23 20:09 Temperature 36.8 C Pulse Rate 72 74 78 Respiratory Rate 16 Blood Pressure 98/52 L Pulse Oximetry 100 Oxygen Delivery Oxygen Flow Rate 12/29/23 16:00 12/29/23 20:00 12/29/23 21:27 Temperature Pulse Rate 78 70 Respiratory Rate 16 16 Blood Pressure Pulse Oximetry 97 100 Oxygen Delivery Nasal Cannula Nasal Cannula Oxygen Flow Rate 3 2 12/29/23 21:27 12/30/23
[2023-12-30] MEDS: TUBING, BLOOD PLUM PUMP TUBING 1 EACH XX (14:15)
[2023-12-30] MEDS: SODIUM CHLORIDE 0.9% IV 250 ML 30 ML IV CONT (14:15)
--- NOTE | 2023-12-30 14:44 | PCOTNOTE ---
Attempted occupational therapy treatment, pt just finished with PERSON INVESTIGATOR and RN was going to start giving her blood due to increased dizziness and low BP, RN stated to check back at a later time. Following.
[2023-12-30 16:21] LABS: Glucose Point of Care 94 mg/dl (65-105)
[2023-12-30] MEDS: ACETAMINOPHEN 325 MG TABLET 650 MG PO (18:01)
--- NOTE | 2023-12-30 18:06 | ECG_ITS ---
Measurements Intervals [place] Rate: 86 P: 43 NM: 229 QRS: -6 QRSD: 166 T: 99 QT: 430 QTc: 473 Interpretive Statements SINUS RHYTHM WITH FIRST DEGREE AV BLOCK LEFT BUNDLE BRANCH BLOCK [120+ ms QRS DURATION, 80+ ms Q/S IN V1/V2, 85+ ms R IN I/aVL/V5/V6] ABNORMAL ECG SEE SCANNED COPY FOR SIGNATURE MTDD
[2023-12-30] MEDS: ALPRAZolam (*CRX) 0.5 MG TABLET PO ×2 (18:12→20:47)
--- NOTE | 2023-12-30 18:14 | PC.NURSE ---
175: Tech calls RN to room. Pt complaining of chest pain. States It feels hard on my left side. Like my breast is heavy. VS obtained and WNL. 12-lead EKG obtained. 1804: Dr. Fernandez notified of situation. Pt states It hurts more when you press on it. No new orders at this time. 1809: RN administered Tylenol per pt's request. Pain scale for Tylenol is 1-5, pt rating pain at an 8. MD aware and in agreement with Tylenol for pain. As RN is administering Tylenol, pt states Now I'm having hot flashes and difficulty breathing. RN places pt on 2L NC of oxygen and also administers 0.05mg PO Xanax.
[2023-12-30 19:11] LABS: Hematocrit 28.6 % (37.0-47.0); Hemoglobin 8.8 g/dL (12.0-15.0)
[2023-12-30 19:40] LABS: Glucose Point of Care 114 mg/dl (65-105)
[2023-12-31] VITALS (8 sets, daily range): BP systolic 98–119; BP diastolic 54–74; PULSE 71–95; RESP 19–20; TEMP 36.6–36.8; O2SAT 91–98
[2023-12-31] MEDS: ACETAMINOPHEN 325 MG TABLET 650 MG PO ×2 (03:11→16:37)
[2023-12-31 04:38] LABS: Hematocrit 29.6 % (37.0-47.0); Hemoglobin 9.1 g/dL (12.0-15.0); Immature Platelet Fraction Pct 7.5 % (0.9-11.2); Mean Corpuscular HGB Conc 30.7 g/dl (32-36); Mean Corpuscular Volume 94.3 fl (80-100); Mean Platelet Volume 11.5 fl (7.4-10.4); Platelet Count Result 101 k/mm3 (150-375); Red Blood Count 3.14 M/mm3 (4.2-5.4); Red Cell Distribution Width 19.5 % (11.5-14.5); White Blood Count 5.2 K/mm3 (4.5-10.0)
[2023-12-31 04:49] LABS: Anion Gap 4 mmol/L (4-12); Blood Urea Nitrogen 24 mg/dL (7-17); Calcium 8.5 mg/dL (8.4-10.2); Carbon Dioxide 24 mmol/L (22-30); Chloride 111 mmol/L (98-107); Estimated CRCL calculation 55 ml/min; Estimated Glomerular Filt Rate > 60; Glucose 80 mg/dL (65-110); Sodium 139 mmol/L (137-145)
[2023-12-31] MEDS: KETOROLAC 30 MG/ML VIAL (*BKC) IV PUSH (04:50)
[2023-12-31] MEDS: FLUTICASONE/SALMETEROL 115-21 MCG INHALER 1 PUFF 2 PUFF INHALATION (07:46)
[2023-12-31 08:03] LABS: Glucose Point of Care 86 mg/dl (65-105)
[2023-12-31] MEDS: LIPASE/AMYLASE/PROTEASE 12,000 UNITS CAP 4 CAP PO ×3 (08:17→16:19)
[2023-12-31] MEDS: polyethylene glycoL 3350 17 GM POWD.PACK PO (08:17)
[2023-12-31] MEDS: INSULIN ASPART (*BKC) 100 UNITS/ML SUB-Q ×3 (08:17→16:19)
[2023-12-31] MEDS: PREGABALIN (*CRX) 75 MG CAPSULE PO ×2 (08:17→16:19)
[2023-12-31] MEDS: CLOPIDOGREL BISULFATE 75 MG TABLET PO (08:17)
[2023-12-31] MEDS: LIDOCAINE 5% PATCH 1 PATCH TOPICAL (08:17)
[2023-12-31] MEDS: INSULIN GLARGINE (*BKC) 100 UNITS/ML 7 UNITS SUB-Q (08:18)
[2023-12-31 11:42] LABS: Glucose Point of Care 58 mg/dl (65-105)
[2023-12-31] MEDS: DEXTROSE 50% 25 GM/50 ML SYRINGE IV PUSH (11:47)
[2023-12-31 12:09] LABS: Glucose Point of Care 215 mg/dl (65-105)
--- NOTE | 2023-12-31 13:59 | PCPTNOTE ---
Attempted to see patient this AM and this PM for Physical Therapy. Patient was on the bedside commode this morning, so was not able to see her. This afternoon patient stated that she did not feel well and she was too tired while she was laying in bed. Patient's reports that patient stated that she did not sleep good last night. Her reports that he was just letting her try to take a nap.
--- NOTE | 2023-12-31 14:08 | PM.TDS ---
Transfer Discharge Sum: Prov Provider Date of admission: 12/30/23 10:14 Primary care physician: Olga Arredondo, Admitting clinician: Demetris Ron MD Consults: Dr. Fernandez Receiving physician/facility: [facility] DS: Admitting Diagnosis Discharge Date 12/31/23 Admitting Diagnosis Hypertension, anemia DS: Discharge Diagnosis Discharge Diagnosis (1) Anemia: Code(s): D64.9 - Anemia, unspecified Status: Acute (2) CVA (cerebral vascular accident): Code(s): I63.9 - Cerebral infarction, unspecified Status: Acute (3) LEXI (acute kidney injury): Code(s): N17.9 - Acute kidney failure, unspecified Status: Acute (4) Hypotension: Code(s): I95.9 - Hypotension, unspecified Status: Acute (5) Combined systolic and diastolic congestive heart failure: Code(s): I50.40 - Unspecified combined systolic (congestive) and diastolic (congestive) heart failure Status: Acute Plan #? Anemia - hemoglobin continues to drop down to 7.1 from presentation 8.7, no obvious bleeding identified - hgb 9.3 - 7.1 - 9.1, 1u PRBC given 12/29 - anemia workup ordered including hemolysis work, pending - no melena identified, no source of bleeding seen. patient is only on plavix - during recent TAVR procedure patient had 2 units packed red blood cell transfusion,? subsequently sent to [facility] for rehab on 12/25 - patient is having ongoing anemia after TAVR,? will evaluate for hemolysis # hypotension, resolved - Continue monitor blood pressure - patient appears to have low cardiac output - with supportive care and blood transfusion, blood pressure has improved # debility - patient work with PT OT, will likely need to go back to [place] rehab after anemia work up # chronic conditions - CKD stage IIIB: Creatinine stable at 1.3,? GFR 41 - peripheral neuropathy: Lyrica - constipation: MiraLax, docusate/senna - chronic? pancreatic insufficiency deficiency: On lipase, amylase, protease supplement -? insulin dependent diabetes:? On glargine 7 units a.m., aspart 3 units t.i.d. a.c., sliding scale insulin, hypoglycemia protocol, Accu-Cheks a.c. HS -? anxiety: Xanax - aortic stenosis: On Plavix - COPD, wean O2 as tolerated, acute hypoxia from anemia Diet:?heart healthy DVT prophylaxis:? SCDs, holding chemoprophylaxis with anemia Code status:?full code Disposition:?transfer to [facility] Transfer Discharge Sum: Med Medications Active and Home Medications: Home Medications acetaminophen 325 mg tablet 650 mg PO Q4H PRN Pain rated 5 or less 12/26/23 [History Confirmed 12/27/23] alprazolam 0.5 mg tablet 0.5 mg PO BID PRN Anxiety 12/26/23 [History Confirmed 12/27/23] alprazolam 1 mg tablet 0.5 mg PO HS 12/26/23 [History Confirmed 12/27/23] clopidogrel 75 mg tablet 75 mg PO DAILY 12/26/23 [History Confirmed 12/27/23] ergocalciferol (vitamin D2) 50,000 unit tablet 50,000 unit PO WEEKLY 12/26/23 [History Confirmed 12/28/23] estradiol 0.01% (0.1 mg/gram) vaginal cream (Estrace) 1 g vaginal 3XW 12/26/23 [History Confirmed 12/28/23] fluticasone furoate 100 mcg-vilanterol 25 mcg/dose inhalation powder (Breo Ellipta) 1 inh inhalation DAILY 12/26/23 [History Confirmed 12/28/23] furosemide 40 mg tablet 40 mg PO BID 12/26/23 [History Confirmed 12/27/23] hydralazine 25 mg tablet 25 mg PO BID 12/26/23 [History Confirmed 12/27/23] hydroxyzine HCl 50 mg tablet 50 mg PO QID PRN Anxiety 12/26/23 [History Confirmed 12/27/23] insulin glargine 100 unit/mL subcutaneous solution (Lantus U-100 Insulin) 7 unit subcut QAM 12/26/23 [History Confirmed 12/27/23] insulin lispro 100 unit/mL subcutaneous solution 3 unit subcut TIDWMEAL 12/26/23 [History Confirmed 12/27/23] ipratropium 0.5 mg-albuterol 3 mg (2.5 mg base)/3 mL nebulization soln 3 ml inhalation Q4H PRN Shortness Of Breath Or Wheezing 12/26/23 [History Confirmed 12/27/23] lidocaine 5 % topical patch (Lidoderm) 1 patch topical DAILY 12/26/23 [History Confirmed 12/28/23] [id number]
[2023-12-31 14:27] LABS: IFOB Positive Control Positive; Immunochemical Fecal Occult Bl Negative (N)
[2023-12-31] MEDS: ALPRAZolam (*CRX) 0.5 MG TABLET PO (16:37)
[2023-12-31 16:43] LABS: Glucose Point of Care 239 mg/dl (65-105)
--- NOTE | 2023-12-31 17:01 | PC.NURSE ---
Pt transferred to room 34857 at [facility]. Report called to ALEJANDRA Sims @ [phone]. Bethany updated at 1700 that patient is leaving the facility and recent medications that were given. Pt has [place] catheter intact and draining. Pt also had 22 gauge IV in RFA at time of discharge. at bedside and aware of transfer.
[2024-01-02 09:49] LABS: Haptoglobin 197 mg/dL (43-212)
== END 2023-12-31 16:58 | disposition short-term general hospital (02) | DRG 663 ==
LOC: ANHED 21:50 → ANHIMU 22:14
PROVIDERS: Internal Medicine; Admitting Provider Internal Medicine; Emergency Provider Emergency Medicine; PCP Emergency Medicine; Visit Provider Student in an Organized Health Care Education/Training Program
DX: D64.9 Anemia, unspecified (principal); N17.9 Acute kidney failure, unspecified; I50.42 Chronic combined systolic (congestive) and diastolic (congestive) heart failure; N18.32 Chronic kidney disease, stage 3b; E86.0 Dehydration; J44.9 Chronic obstructive pulmonary disease, unspecified; E11.65 Type 2 diabetes mellitus with hyperglycemia; E11.42 Type 2 diabetes mellitus with diabetic polyneuropathy; K86.89 Other specified diseases of pancreas; G72.81 Critical illness myopathy; R79.89 Other specified abnormal findings of blood chemistry; R29.818 Other symptoms and signs involving the nervous system; F41.9 Anxiety disorder, unspecified; I69.354 Hemiplegia and hemiparesis following cerebral infarction affecting left non-dominant side; Z95.2 Presence of prosthetic heart valve; Z79.02 Long term (current) use of antithrombotics/antiplatelets; Z87.891 Personal history of nicotine dependence; Z79.4 Long term (current) use of insulin
CPT/HCPCS: 36415; 36430; 71045; 80048; 80053; 82247; 82248; 82274; 82607; 82728; 82746; 82948; 83010; 83540; 83550; 83605; 83615; 83735; 84439; 84443; 84466; 84480; 84484; 85014; 85018; 85025; 85027; 85046; 85055; 85610; 85730; 86709; 86803; 86850; 86900; 86901; 86923; 87086; 87340; 93005; 94640; 96360; 96361; 97161; 97165; 97530; 97535; 99285; A9270; G0378; J1815; J1885; J7040; J7050; J7120; P9016

== ENCOUNTER 2025-08-09 07:34 | Outpatient (CLI) | payer OTHER, SELFPAY ==
--- NOTE | ~2025-08-09 | US_ITS ---
US right upper quadrant Indication: RUQ pain Comparison: None Technique: Blake-scale and color Doppler images were obtained. Findings: LIVER: Mild increased echogenicity in the liver. . GALLBLADDER/BILIARY: Gallbladder is contracted limiting evaluation. CBD 3 mm. [place] sign negative. PANCREAS: Pancreas limited by bowel gas. Right Kidney: Right kidney was not imaged. Impression: 1. Limited study. Mild hepatic steatosis. Reviewed, dictated and finalized at location P. ITE OPERATOR Impression: 1. Limited study. Mild hepatic steatosis.
== END 2025-08-09 07:35 | disposition home or self-care (01) ==
PROVIDERS: PCP Emergency Medicine; Visit Provider Emergency Medicine
DX: K76.0 Fatty (change of) liver, not elsewhere classified (principal)
CPT/HCPCS: 76705